=== PATIENT | female | born 1950 | race Caucasian/White ===

== ENCOUNTER 2021-06-22 08:21 | Outpatient (CLI) | payer MEDICARE | END 2021-06-22 08:22 | disposition home or self-care (01) | LOC: CSHULT 08:21 | PROVIDERS: ATTEND Family Medicine | DX: R74.8 Abnormal levels of other serum enzymes (principal); L29.9 Pruritus, unspecified | CPT/HCPCS: 76705 ==

== ENCOUNTER 2021-10-18 10:53 | Outpatient (CLI) | payer MEDICARE | END 2021-10-18 10:54 | disposition home or self-care (01) | LOC: CSHMAMMO 10:53 | PROVIDERS: ATTEND Family Medicine | DX: Z12.31 Encounter for screening mammogram for malignant neoplasm of breast (principal) | CPT/HCPCS: 77063; 77067 ==